=== PATIENT | female | born 1955 | race African-American/Black ===

== ENCOUNTER 2017-06-09 20:01 | Emergency (ER) | payer BC ==
[2017-06-09 20:30] VITALS: RESP 18; BMI 32.0
[2017-06-09] MEDS ORDERED: Sodium Chloride 0.9% 500 ML IV ONE ×2 (20:54→21:47)
[2017-06-09] MEDS ORDERED: Sodium Chloride 0.9% 1,000 ML IV ONE (20:54)
--- NOTE | 2017-06-09 20:57 | C.PDOC ---
Chief Complaint (Nursing): Syncope Past Medical History Vital Signs: Last Vital Signs Temp 98.8 F 06/09/17 20:21 Pulse 64 06/09/17 20:21 Resp 18 06/09/17 20:21 BP 119/52 L 06/09/17 20:21 Pulse Ox 96 06/09/17 20:21 - Medical History PMH: HTN - Social History Hx Alcohol Use: No Hx Substance Use: No - Immunization History Hx Tetanus Toxoid Vaccination: No Hx Influenza Vaccination: No Hx Pneumococcal Vaccination: No ED Course And Treatment O2 Sat by Pulse Oximetry: 96 Disposition - Disposition
--- NOTE | 2017-06-09 20:59 | C.PDOC ---
History Of Present Illness 62yo female presents to ER for evaluation after a syncopal episode at home. The syncopal episode lasted approximately 2 minutes with no associated tremors. Patient felt lightheaded and sweats before the episode. She also reports flu like symptoms including cough and congestion for the past 3 days. She reports a tactile fever as well. She currently is complaining of nausea but denies any vomiting, diarrhea or headache. No other complaints. Chief Complaint (Nursing): Syncope History Per: Patient History/Exam Limitations: no limitations Number Of Syncopal Episodes: 1 Associated Symptoms Preceding Syncopal Episode: Lightheadedness Seizure Or Post-ictal Symptoms: None Past Medical History Reviewed: Historical Data, Nursing Documentation, Vital Signs Vital Signs: Last Vital Signs Temp 98.8 F 06/09/17 20:21 Pulse 56 L 06/09/17 22:30 Resp 18 06/09/17 22:30 BP 132/82 06/09/17 22:30 Pulse Ox 96 06/09/17 23:09 - Medical History PMH: HTN Surgical History: No Surg Hx Family History: States: No Known Family Hx - Social History Hx Alcohol Use: No Hx Substance Use: No - Immunization History Hx Tetanus Toxoid Vaccination: No Hx Influenza Vaccination: No Hx Pneumococcal Vaccination: No Review Of Systems Except As Marked, All Systems Reviewed And Found Negative. Constitutional: Positive for: Fever (tactile), Sweats ENT: Positive for: Nose Congestion Respiratory: Positive for: Cough Gastrointestinal: Positive for: Nausea. Negative for: Vomiting, Diarrhea Neurological: Positive for: Other (syncopal episode). Negative for: Headache Physical Exam - Physical Exam Appears: Non-toxic Skin: Warm, Dry Head: Atraumatic, Normacephalic Eye(s): bilateral: Normal Inspection, PERRL, EOMI Oral Mucosa: Moist Neck: Normal ROM, Supple Chest: Symmetrical Cardiovascular: Rhythm Regular Respiratory: Normal Breath Sounds, No Wheezing Gastrointestinal/Abdominal: Normal Exam, Bowel Sounds, Soft, No Tenderness Back: Normal Inspection Extremity: Normal ROM, No Deformity Neurological/Psych: Oriented x3, Normal Speech, Normal Cognition, Normal Motor, Normal Sensation ED Course And Treatment - Laboratory Results Result Diagrams: 06/09/17 21:41 06/09/17 21:41 ECG: Interpreted By Me, Viewed By Me ECG Rhythm: Sinus Rhythm, PVC, ST/T Changes ECG Interpretation: No Acute Changes, Abnormal Interpretation Of ECG: Sinus rhythm with freq PVC, presence of T wav e abnormality/ Rate From EC O2 Sat by Pulse Oximetry: 96 (RA) Pulse Ox Interpretation: Normal - Radiology CXR: Interpreted by Me, Viewed By Me CXR Interpretation: Yes: Cardiomegaly, Other (left CP angle dennsity-pleural effusion) - CT Scan/US CT Head w/o contrast Other Rad Studies (CT/US): Read By Radiologist, Radiology Report Reviewed CT/US Interpretation: FINDINGS: Brain: Minimal atrophy. No intracranial hemorrhage. No mass. No definite edema. Ventricles: No hydrocephalus. Bones/ joints: No acute fracture. Soft tissues: Unremarkable. Sinuses: Mild focal mucosal thickening of RIGHT frontal sinus. Moderate mucosal. thickening/ minimal fluid of LEFT sphenoid sinus. Small fluid within RIGHT sphenoid sinus. Mastoid air cells: No mastoid effusion. Orbits: Unremarkable as visualized. IMPRESSION: 1. No definite acute intracranial abnormality. 2. Sinus disease. 3. Incidental/non-acute findings are described above. NIHSS Stroke Scale 2 - Date/Time Evaluation Performed Date Performed: 06/09/17 Time Performed: 20:40 When Was NIHSS Performed: Baseline - How Severe is the Stroke Level of Consciousness: 0=Alert LOC to Questions: 0=Both comments correct LOC to commands: 0=Obeys both correctly Best Gaze: 0=Normal Visual: 0=No visual loss Facial: 0=Normal Motor Arm - Left: 0=No drift Motor Arm - Right: 0=No drift Motor Leg - Left: 0=No drift Motor Leg - Right: 0=No drift Limb Ataxia: 0=Absent Sensory: 0=Normal Best Language: 0=No aphasia Dysarthia: 0=Normal articulation Extinction & Inattention (Neglect): 0=Normal, no object Score: 0 Medical Decision Making Medical Decision Making: Impression: Syncopal episode Plan: -- CT Head w/o contrast -- Labs -- IV Fluids -- CXR Disposition Discussed With : Chris Banegas Doctor Will See Patient In The: Hospital Counseled Patient/Family Regarding: Diagnosis - Disposition Disposition: HOSPITALIZED Disposition Time: 23:53 Condition: STABLE Forms: [facility] ([place]) - POA Present On Arrival: None - Clinical Impression Clinical Impression: Syncope - Scribe Statement The provider has reviewed the documentation as recorded by the Scribe (Umm Olvera) Provider Attestation: All medical record entries made by the Tyrone were at my direction and personally dictated by me. I have reviewed the chart and agree that the record accurately reflects my personal performance of the history, physical exam, medical decision making, and the department course for this patient. I have also personally directed, reviewed, and agree with the discharge instructions and disposition.
--- NOTE | 2017-06-09 21:40 | CT ---
EXAM: CT Head Without Intravenous Contrast CLINICAL HISTORY: 62 years old, female; Condition or disease; Headache; Headache not specified TECHNIQUE: Axial computed tomography images of the head/brain without intravenous contrast. All CT scans at this facility use one or more dose reduction techniques, viz.: automated exposure control; ma/kV adjustment per patient size (including targeted exams where dose is matched to indication; i.e. head); or iterative reconstruction technique. COMPARISON: No relevant prior studies available. FINDINGS: Brain: Minimal atrophy. No intracranial hemorrhage. No mass. No definite edema. Ventricles: No hydrocephalus. Bones/joints: No acute fracture. Soft tissues: Unremarkable. Sinuses: Mild focal mucosal thickening of RIGHT frontal sinus. Moderate mucosal thickening/minimal fluid of LEFT sphenoid sinus. Small fluid within RIGHT sphenoid sinus. Mastoid air cells: No mastoid effusion. Orbits: Unremarkable as visualized. IMPRESSION: 1. No definite acute intracranial abnormality. 2. Sinus disease. 3. Incidental/non-acute findings are described above.
[2017-06-09 21:47] LABS: BASO % 0.5 % (0.0-2.0); EOS # 0.1 K/uL (0.0-0.7); EOS % 1.3 % (0.0-4.0); HEMOGLOBIN 12.5 g/dL (11.0-16.0); LYMPH # 1.6 K/uL (1.0-4.3); LYMPH % 25.3 % (20.0-40.0); MEAN CELL VOLUME 81.6 fL (81.0-99.0); MEAN CORPUSCULAR HEMOGLOBIN 26.4 pg (27.0-31.0); MEAN CORPUSCULAR HGB CONC 32.4 g/dL (33.0-37.0); MEAN PLATELET VOLUME 11.3 fL (7.2-11.7); MONO # 0.7 K/uL (0.0-0.8); MONO % 10.5 % (0.0-10.0); NEUT # 3.9 K/uL (1.8-7.0); NEUT % 62.4 % (50.0-75.0); NRBC % 0.1 % (0.0-2.0); RBC 4.73 Mil/uL (3.80-5.20); RED CELL DISTRIBUTION WIDTH 14.2 % (11.5-14.5); WHITE BLOOD COUNT 6.3 K/uL (4.8-10.8)
[2017-06-09] MEDS ORDERED: Sodium Chloride 0.9% 1,000 ML ONE (21:47)
[2017-06-09 22:30] LABS: ALB/GLOB RATIO 1.2 (1.0-2.1); ALT/SGPT 23 U/L (9-52); AST/SGOT 45 U/L (14-36); BLOOD UREA NITROGEN 15 mg/dL (7-17); GFR AFRICAN-AMERICAN > 60; GFR NON-AFRICAN AMERICAN > 60
[2017-06-09 23:08] LABS: SQUAMOUS EPITHIAL 3 /hpf (0-5); URINE BILIRUBIN NEGATIVE (NEGATIVE); URINE BLOOD NEGATIVE (NEGATIVE); URINE CLARITY Clear (Clear); URINE COLOR Straw (YELLOW); URINE GLUCOSE (UA) NORMAL (Normal); URINE LEUKOCYTE ESTERASE NEG Leu/uL (Negative); URINE NITRATE NEGATIVE (NEGATIVE); URINE PROTEIN NEGATIVE (NEGATIVE); URINE UROBILINOGEN NORMAL mg/dL (0.2-1.0)
--- NOTE | 2017-06-09 23:37 | CT ---
EXAM: CT Chest Without Intravenous Contrast CLINICAL HISTORY: 62 years old, female; Pain; Chest pain; Additional info: Cough/ haziness left cp area TECHNIQUE: Axial computed tomography images of the chest without intravenous contrast. All CT scans at this facility use one or more dose reduction techniques, viz.: automated exposure control; ma/kV adjustment per patient size (including targeted exams where dose is matched to indication; i.e. head); or iterative reconstruction technique. Coronal and sagittal reformatted images were created and reviewed. COMPARISON: No relevant prior studies available. FINDINGS: Limitations: Lack of intravenous contrast. Motion artifact - mild. Lungs: Mild atelectasis/scarring. No consolidation. Few subpleural nodules and/or scarring, up to 0.4 cm. Pleural space: No pneumothorax. No significant effusion. Heart: Mild cardiomegaly. No significant pericardial effusion. Minimal coronary artery calcifications. Mediastinum: Small hiatal hernia. Bones/joints: Mild degenerative changes of spine. Probable bone island. No acute fracture. Soft tissues: Unremarkable. Vasculature: Minimal atherosclerotic disease. Lymph nodes: No pathologically enlarged lymph nodes. Upper abdomen: Minimal stranding within central mesentery, nonspecific. IMPRESSION: 1. No definite CT evidence of pneumonia. 2. Pulmonary nodules. For low-risk patients, no follow-up is necessary. For high-risk patients (smoking history or other known risk factors) an optional CT at 12 months could be performed. 3. Incidental/non-acute findings are described above.
[2017-06-10 01:21] VITALS: BP 134/77; PULSE 62; TEMP 98; O2SAT 99
--- NOTE | 2017-06-10 08:31 | RAD ---
Chest x-ray single frontal view History: Cough. Comparison: 06/09/2017 Findings Mild venous congestion. Small left pleural effusion. Consolidative changes in the right hilar region and left lung base. Top-normal heart size. Impression: Mild venous congestion. Small left pleural effusion. Consolidative changes in the right hilar region and left lung base.
--- NOTE | 2017-06-10 21:03 | CARD ---
APPROVED REPORT EKG Measurement Heart [id number] <Conclusion> Sinus rhythm with frequent premature ventricular complexes in a pattern of bigeminy T wave abnormality, consider anterior ischemia Abnormal ECG
--- NOTE | 2017-06-10 22:48 | CP.PCM.HP ---
History of Present Illness - History of Present Illness History of Present Illness: 62yo female presents to ER for evaluation after a syncopal episode at home. The syncopal episode lasted approximately 2 minutes with no associated tremors. Patient felt lightheaded and sweats before the episode. She also reports flu like symptoms including cough and congestion for the past 3 days. She reports a tactile fever as well. She currently is complaining of nausea but denies any vomiting, diarrhea or headache. No other complaints. Past Patient History - Past Social History Smoking Status: Never Smoked - CARDIAC Hx Hypertension: Yes - PSYCHIATRIC Hx Substance Use: No - SURGICAL HISTORY Hx Cataract Extraction: Yes - ANESTHESIA Hx Anesthesia: Yes Hx Anesthesia Reactions: No Meds Allergies/Adverse Reactions: Allergies Allergy/AdvReac Type Severity Reaction Status Date / Time No Known Allergies Allergy Verified 06/09/17 20:21 Results - Vital Signs Recent Vital Signs: Last Vital Signs Temp 98.0 F 06/10/17 01:20 Pulse 62 06/10/17 01:20 Resp 18 06/10/17 01:20 BP 134/77 06/10/17 01:20 Pulse Ox 99 06/10/17 01:20 - Labs Result Diagrams: 06/09/17 21:41 06/09/17 21:41 Labs: Laboratory Results - last 24 hr 06/09/17 22:55 Urine Color Straw Urine Clarity Clear Urine pH 6.0 Ur Specific [place] 1.006 Urine Protein Negative Urine Glucose (UA) Normal Urine Ketones Negative Urine Blood Negative Urine Nitrate Negative Urine Bilirubin Negative Urine Urobilinogen Normal Ur Leukocyte Esterase Neg Urine WBC (Auto) 3 Ur Squamous Epith Cells 3
--- NOTE | 2017-06-10 22:49 | CP.PCM.DIS ---
Provider - Provider Date of Admission: 06/09/17 23:55 Attending physician: Chris Banegas MD Hospital Course - Lab Results Lab Results: Most Recent Lab Values WBC 6.3 K/uL (4.8-10.8) 06/09/17 21:41 RBC 4.73 Mil/uL (3.80-5.20) 06/09/17 21:41 Hgb 12.5 g/dL (11.0-16.0) 06/09/17 21:41 Hct 38.6 % (34.0-47.0) 06/09/17 21:41 MCV 81.6 fL (81.0-99.0) 06/09/17 21:41 MCH 26.4 pg (27.0-31.0) L 06/09/17 21:41 MCHC 32.4 g/dL (33.0-37.0) L 06/09/17 21:41 RDW 14.2 % (11.5-14.5) 06/09/17 21:41 Plt Count 133 K/uL (130-400) 06/09/17 21:41 MPV 11.3 fL (7.2-11.7) 06/09/17 21:41 Neut % (Auto) 62.4 % (50.0-75.0) 06/09/17 21:41 Lymph % (Auto) 25.3 % (20.0-40.0) 06/09/17 21:41 [place] % (Auto) 10.5 % (0.0-10.0) H 06/09/17 21:41 Eos % (Auto) 1.3 % (0.0-4.0) 06/09/17 21:41 Baso % (Auto) 0.5 % (0.0-2.0) 06/09/17 21:41 Neut # (Auto) 3.9 K/uL (1.8-7.0) 06/09/17 21:41 Lymph # (Auto) 1.6 K/uL (1.0-4.3) 06/09/17 21:41 [place] # (Auto) 0.7 K/uL (0.0-0.8) 06/09/17 21:41 Eos # (Auto) 0.1 K/uL (0.0-0.7) 06/09/17 21:41 Baso # (Auto) 0.0 K/uL (0.0-0.2) 06/09/17 21:41 D-Dimer, Quantitative 209 ng/mlDDU (0-243) 06/09/17 21:41 Sodium 135 mmol/L (132-148) 06/09/17 21:41 Potassium 4.2 mmol/L (3.6-5.2) 06/09/17 21:41 Chloride 98 mmol/L (98-107) 06/09/17 21:41 Carbon Dioxide 26 mmol/L (22-30) 06/09/17 21:41 Anion Gap 15 (10-20) 06/09/17 21:41 BUN 15 mg/dL (7-17) 06/09/17 21:41 Creatinine 0.9 mg/dL (0.7-1.2) 06/09/17 21:41 Est GFR ( Amer) > 60 06/09/17 21:41 Est GFR (Non-Af Amer) > 60 06/09/17 21:41 Random Glucose 109 mg/dL (65-105) H 06/09/17 21:41 Calcium 9.0 mg/dl (8.6-10.4) 06/09/17 21:41 Total Bilirubin 0.5 mg/dL (0.2-1.3) 06/09/17 21:41 AST 45 U/L (14-36) H 06/09/17 21:41 ALT 23 U/L (9-52) 06/09/17 21:41 Alkaline Phosphatase 63 U/L (38-126) 06/09/17 21:41 Troponin I < 0.0120 ng/mL (0.00-0.120) 06/09/17 21:41 Total Protein 7.3 g/dL (6.3-8.3) 06/09/17 21:41 Albumin 4.0 g/dL (3.5-5.0) 06/09/17 21:41 Globulin 3.2 gm/dL (2.2-3.9) 06/09/17 21:41 Albumin/Globulin Ratio 1.2 (1.0-2.1) 06/09/17 21:41 Urine Color Straw (YELLOW) 06/09/17 22:55 Urine Clarity Clear (Clear) 06/09/17 22:55 Urine pH 6.0 (5.0-8.0) 06/09/17 22:55 Ur Specific [place] 1.006 (1.003-1.030) 06/09/17 22:55 Urine Protein Negative mg/dL (NEGATIVE) 06/09/17 22:55 Urine Glucose (UA) Normal mg/dL (Normal) 06/09/17 22:55 Urine Ketones Negative mg/dL (NEGATIVE) 06/09/17 22:55 Urine Blood Negative (NEGATIVE) 06/09/17 22:55 Urine Nitrate Negative (NEGATIVE) 06/09/17 22:55 Urine Bilirubin Negative (NEGATIVE) 06/09/17 22:55 Urine Urobilinogen Normal mg/dL (0.2-1.0) 06/09/17 22:55 Ur Leukocyte Esterase Neg [place]/uL (Negative) 06/09/17 22:55 Urine WBC (Auto) 3 /hpf (0-5) 06/09/17 22:55 Ur Squamous Epith Cells 3 /hpf (0-5) 06/09/17 22:55 Influenza Typ A,B (EIA) Negative for flu a/b (NEGATIVE) 06/09/17 22:07 Discharge Plan - Follow Up Plan Condition: STABLE Disposition: AGAINST MEDICAL ADVICE
== END 2017-06-10 01:21 | disposition left against medical advice (07) ==
LOC: C.ER 20:01 → C.9E 23:55 → UNDOADMOB 23:55 → C.ER 06-10 01:21 → UNDODISOB 06-10 01:21
DX: R55 Syncope and collapse (principal); R50.9 Fever, unspecified; R05 Cough; R09.81 Nasal congestion
CPT/HCPCS: 70450; 71045; 71250; 80053; 81001; 84484; 85025; 85378; 87804; 93005; G0378; J7040